=== PATIENT | female | born 1955 | race Caucasian/White ===

== ENCOUNTER 2017-04-02 18:27 | Emergency (ER) | payer MEDICARE, BC ==
[2017-04-02] MEDS: hydrALAzine 20 MG INJ IV (19:14)
== END 2017-04-02 21:00 | disposition home or self-care (01) ==
LOC: E/R 21:00
DX: I12.0 Hypertensive chronic kidney disease with stage 5 chronic kidney disease or end stage renal disease (principal); N18.6 End stage renal disease; E11.22 Type 2 diabetes mellitus with diabetic chronic kidney disease; I25.10 Atherosclerotic heart disease of native coronary artery without angina pectoris; Z79.4 Long term (current) use of insulin; Z79.01 Long term (current) use of anticoagulants; Z99.2 Dependence on renal dialysis; Z95.1 Presence of aortocoronary bypass graft; Z79.82 Long term (current) use of aspirin
CPT/HCPCS: 93005; 96374; 99284-25

== ENCOUNTER 2017-05-12 17:45 | Emergency (ER) | payer MEDICARE, BC ==
[2017-05-12] MEDS ORDERED: FAMOTIDINE 20 MG INJ IV (17:56)
[2017-05-12] MEDS ORDERED: hydrALAzine 20 MG INJ IV (18:00)
[2017-05-12] MEDS: LIDOCAINE/MYLANTA 40 ML BTL PO (18:50)
[2017-05-12] MEDS: NICARDipine HCL 30 MG CAPSULE PO (19:22)
[2017-05-12 21:46] LABS: ADD MAN DIFF? NO
[2017-05-12 21:47] LABS: WHITE BLOOD COUNT 2.9 10^3/ul (4.8-10.8)
[2017-05-12 21:48] LABS: BASOPHILS % 0.7 % (0.0-2.0); EOSINOPHILS # 0.1 10^3/ul (0.0-0.5); EOSINOPHILS % 3.8 % (0.0-7.0); HEMOGLOBIN 10.9 g/dl (12.0-16.0); LYMPHOCYTES # 0.8 10^3/ul (0.8-2.9); LYMPHOCYTES % 27.1 % (15.0-51.0); MEAN CORPUSCULAR HEMOGLOBIN 33.7 pg (29.0-33.0); MEAN CORPUSCULAR VOLUME 102.2 fl (82.0-101.0); MEAN PLATELET VOLUME 9.2 fl (7.4-10.4); MONOCYTE # 0.3 10^3/ul (0.3-0.9); MONOCYTES % 10.1 % (0.0-11.0); NEUTROPHIL # 1.7 10^3/ul (1.6-7.5); PLATELET COUNT 183 10^3/UL (140-415); RED BLOOD COUNT 3.23 10^6/ul (4.20-5.40); RED CELL DISTRIBUTION WIDTH 15.4 % (11.5-14.5)
[2017-05-12 22:03] LABS: INR 1.16; PT RATIO 1.2
[2017-05-12 22:05] LABS: ANION GAP 19 (8-16); BLOOD UREA NITROGEN 39 mg/dl (7-20); CALCIUM 9.3 mg/dl (8.4-10.2); CARBON DIOXIDE 28 mmol/L (21-31); CHLORIDE 97 mmol/L (97-110); CREATININE 3.57 mg/dl (0.44-1.00); GLUCOSE 75 mg/dl (70-220); POTASSIUM 5.2 mmol/L (3.5-5.1); SODIUM 139 mmol/L (135-144)
[2017-05-12 22:10] LABS: PARTIAL THROMBOPLASTIN TIME 97.6 Sec (25.0-35.0)
[2017-05-12 22:17] LABS: TROPONIN-I 0.025 ng/ml (0.00-0.12)
== END 2017-05-13 02:20 | disposition home or self-care (01) ==
LOC: E/R 05-13 02:20
DX: I16.0 Hypertensive urgency (principal); E11.22 Type 2 diabetes mellitus with diabetic chronic kidney disease; N18.6 End stage renal disease; I12.0 Hypertensive chronic kidney disease with stage 5 chronic kidney disease or end stage renal disease; Z79.82 Long term (current) use of aspirin; Z79.84 Long term (current) use of oral hypoglycemic drugs; Z99.2 Dependence on renal dialysis
CPT/HCPCS: 36415; 70450; 71045; 80048; 84484; 85025; 85610; 85730; 93005; 99285-25

== ENCOUNTER 2017-09-27 10:50 | Emergency (ER) | payer MEDICARE, BC ==
[2017-09-27] MEDS: IBUPROFEN 600 MG TAB PO (11:25)
[2017-09-27 11:46] LABS: ADD UMIC YES; UR ASCORBIC ACID NEGATIVE (NEGATIVE); UR BACTERIA FEW /HPF (NONE SEEN); UR BILIRUBIN (Dip) NEGATIVE (NEGATIVE); UR BLOOD (Dip) NEGATIVE (NEGATIVE); UR CLARITY SLIGHTLY CLOUDY (CLEAR); UR COLOR YELLOW (YELLOW); UR GLUCOSE (Dip) 1+ mg/dL (NEGATIVE); UR KETONES (Dip) NEGATIVE (NEGATIVE); UR LEUKOCYTE ESTERASE (Dip) 3+ Leu/ul (NEGATIVE); UR NITRITE (Dip) NEGATIVE (NEGATIVE); UR RBC 4 /HPF (0-5); UR RENAL EPITHELIAL CELL FEW /HPF (NONE SEEN); UR SPECIFIC GRAVITY (Dip) 1.008 (1.003-1.030); UR SQUAMOUS EPITHELIAL CELL MODERATE /HPF (FEW); UR TOTAL PROTEIN (Dip) 2+ mg/dl (NEGATIVE); UR UROBILINOGEN (Dip) NEGATIVE (NEGATIVE); UR WBC 17 /HPF (0-5)
== END 2017-09-27 12:18 | disposition home or self-care (01) ==
LOC: FTE 10:50
DX: S39.012A Strain of muscle, fascia and tendon of lower back, initial encounter (principal); N30.00 Acute cystitis without hematuria; I12.0 Hypertensive chronic kidney disease with stage 5 chronic kidney disease or end stage renal disease; N18.6 End stage renal disease; E11.22 Type 2 diabetes mellitus with diabetic chronic kidney disease; W19.XXXA Unspecified fall, initial encounter; Y92.9 Unspecified place or not applicable; Z99.2 Dependence on renal dialysis; Z79.4 Long term (current) use of insulin; Z79.82 Long term (current) use of aspirin; Z79.01 Long term (current) use of anticoagulants
CPT/HCPCS: 72100; 81001; 99284-25

== ENCOUNTER 2017-11-17 16:33 | Observation (INO) | payer MEDICARE, BC ==
[2017-11-17 17:00] LABS: ADD MAN DIFF? NO
[2017-11-17 17:03] LABS: BASOPHILS % 0.6 % (0.0-2.0); EOSINOPHILS # 0.1 10^3/ul (0.0-0.5); EOSINOPHILS % 3.5 % (0.0-7.0); HEMATOCRIT 30.3 % (37.0-47.0); HEMOGLOBIN 9.8 g/dl (12.0-16.0); LYMPHOCYTES % 30.8 % (15.0-51.0); MEAN CORPUSCULAR HEMOGLOBIN 35.5 pg (29.0-33.0); MEAN CORPUSCULAR HGB CONC 32.3 g/dl (32.0-37.0); MEAN CORPUSCULAR VOLUME 109.8 fl (82.0-101.0); MEAN PLATELET VOLUME 9.6 fl (7.4-10.4); MONOCYTE # 0.3 10^3/ul (0.3-0.9); MONOCYTES % 9.1 % (0.0-11.0); NEUTROPHIL # 1.8 10^3/ul (1.6-7.5); NUCLEATED RED BLOOD CELLS% 0.9 /100WBC (0.0-0.0); PLATELET COUNT 152 10^3/UL (140-415); RED BLOOD COUNT 2.76 10^6/ul (4.20-5.40); RED CELL DISTRIBUTION WIDTH 15.4 % (11.5-14.5)
[2017-11-17 17:03] LABS: WHITE BLOOD COUNT 3.2 10^3/ul (4.8-10.8)
[2017-11-17] MEDS: NITROGLYCERIN 2% 1 GM OINT PKT TD (17:17)
[2017-11-17] MEDS: ASPIRIN 81 MG TAB PO (17:17)
[2017-11-17 17:28] LABS: ALANINE AMINOTRANSFERASE 37 IU/L (13-69); ALBUMIN 4.1 g/dl (3.3-4.9); ALBUMIN/GLOBULIN RATIO 1.13; ALKALINE PHOSPHATASE 120 IU/L (42-121); ANION GAP 16 (8-16); ASPARTATE AMINO TRANSFERASE 35 IU/L (15-46); BILIRUBIN,INDIRECT 0.7 mg/dl (0-1.1); BILIRUBIN,TOTAL 0.7 mg/dl (0.2-1.3); BLOOD UREA NITROGEN 23 mg/dl (7-20); CALCIUM 9.5 mg/dl (8.4-10.2); CARBON DIOXIDE 28 mmol/L (21-31); CHLORIDE 97 mmol/L (97-110); CREATININE 3.24 mg/dl (0.44-1.00); GLUCOSE 111 mg/dl (70-220); POTASSIUM 4.3 mmol/L (3.5-5.1); SODIUM 137 mmol/L (135-144); TOTAL PROTEIN 7.7 g/dl (6.1-8.1)
[2017-11-17 17:39] LABS: TROPONIN-I 0.043 ng/ml (0.000-0.120)
[2017-11-17] MEDS ORDERED: traMADol 50 MG TAB PO (19:00)
[2017-11-17] MEDS ORDERED: PHENAZOPYRIDINE 100 MG TAB PO (19:00)
[2017-11-17] MEDS ORDERED: NACL 0.9% 3 ML SYG IV (19:00)
[2017-11-17] MEDS ORDERED: NON-FORMULARY/PATIENT OWN MED (Clonidine Patch 1 PATCH.WK) TD (19:00)
[2017-11-17] MEDS ORDERED: HYDROCODONE/APAP (5/325) TAB PO (19:00)
[2017-11-17] MEDS ORDERED: ACETAMINOPHEN 325 MG TAB PO (19:00)
[2017-11-17] MEDS ORDERED: DOCUSATE SODIUM 100 MG CAP PO (19:00)
[2017-11-17] MEDS ORDERED: MAGNESIUM HYDROXIDE 30ML CUP PO (19:00)
[2017-11-17] MEDS ORDERED: NITROGLYCERIN (SL) 0.4 MG TAB SL (19:00)
[2017-11-17] MEDS ORDERED: ZOLPIDEM 5 MG TAB PO ×2 (19:00)
[2017-11-17] MEDS ORDERED: NUT TX IMPAIRED RENAL FXN SOY PO (19:00)
[2017-11-17] MEDS ORDERED: [UNRECOGNIZED DRUG - OTHER] PO (19:00)
[2017-11-17] MEDS ORDERED: morphine 2 MG INJ IV (19:00)
[2017-11-17] MEDS ORDERED: GLUCOSE GEL 15 GRAM TUBE BUCCAL (19:30)
[2017-11-17] MEDS ORDERED: GLUCOSE GEL 15 GRAM TUBE PO ×2 (19:30)
[2017-11-17] MEDS ORDERED: DEXTROSE 50% 50 ML SYRINGE IV ×2 (19:30)
[2017-11-17] MEDS ORDERED: ONDANSETRON 4 MG INJ IV (19:30)
[2017-11-17] MEDS ORDERED: GLUCAGON 1 MG INJ IM (19:30)
[2017-11-17] MEDS: INSULIN ASPART [NOVOLOG] 3 ML PEN SC (21:00)
[2017-11-17] MEDS: NIFEdipine (XL) 30 MG TAB PO (21:58)
[2017-11-17] MEDS: SOD CHLORIDE 0.9% 1,000 ML IV (22:01)
[2017-11-17] MEDS: BIMATOPROST 0.01% 2.5 ML BTL BOTH EYES (22:13)
[2017-11-18 01:12] LABS: TROPONIN-I 0.041 ng/ml (0.000-0.120)
[2017-11-18] MEDS: ACCU-CHEK XX (02:00)
[2017-11-18] MEDS: PANTOPRAZOLE (EC) 40 MG TAB PO (06:24)
[2017-11-18] MEDS: INSULIN ASPART [NOVOLOG] 3 ML PEN SC ×4 (07:18→20:59)
[2017-11-18] MEDS: SEVELAMER CARBONATE 2.4 GM PKT PO ×3 (07:37→17:11)
[2017-11-18] MEDS: INSULIN ASP PROT/ASPART (70/30) PEN SC (07:43)
[2017-11-18] MEDS: traZODone 100 MG TAB PO (08:54)
[2017-11-18] MEDS: CINACALCET 30 MG TAB PO (08:54)
[2017-11-18] MEDS: CLOPIDOGREL 75 MG TAB PO (08:55)
[2017-11-18] MEDS: SERTRALINE 50 MG TAB PO (08:56)
[2017-11-18] MEDS: ASPIRIN 325 MG TAB PO (08:56)
[2017-11-18] MEDS: DOCUSATE SODIUM 100 MG CAP PO (08:56)
[2017-11-18 08:57] LABS: ADD MAN DIFF? NO
[2017-11-18] MEDS: MULTIVIT/CA CARB/B CMPLX/FA TAB PO (08:57)
[2017-11-18 09:03] LABS: WHITE BLOOD COUNT 2.4 10^3/ul (4.8-10.8)
[2017-11-18 09:03] LABS: BASOPHILS % 0.9 % (0.0-2.0); EOSINOPHILS # 0.1 10^3/ul (0.0-0.5); EOSINOPHILS % 4.3 % (0.0-7.0); HEMATOCRIT 27.6 % (37.0-47.0); LYMPHOCYTES # 0.7 10^3/ul (0.8-2.9); LYMPHOCYTES % 30.6 % (15.0-51.0); MEAN CORPUSCULAR HEMOGLOBIN 36.1 pg (29.0-33.0); MEAN CORPUSCULAR HGB CONC 32.6 g/dl (32.0-37.0); MEAN CORPUSCULAR VOLUME 110.8 fl (82.0-101.0); MEAN PLATELET VOLUME 9.6 fl (7.4-10.4); MONOCYTE # 0.3 10^3/ul (0.3-0.9); MONOCYTES % 11.9 % (0.0-11.0); NEUTROPHIL # 1.2 10^3/ul (1.6-7.5); NEUTROPHILS % 52.3 % (39.0-77.0); PLATELET COUNT 137 10^3/UL (140-415); RED BLOOD COUNT 2.49 10^6/ul (4.20-5.40); RED CELL DISTRIBUTION WIDTH 15.2 % (11.5-14.5)
[2017-11-18 09:26] LABS: ANION GAP 16 (8-16); BLOOD UREA NITROGEN 40 mg/dl (7-20); CALCIUM 9.2 mg/dl (8.4-10.2); CARBON DIOXIDE 26 mmol/L (21-31); CHLORIDE 99 mmol/L (97-110); CREATININE 4.43 mg/dl (0.44-1.00); GLUCOSE 83 mg/dl (70-220); MAGNESIUM 1.9 mg/dl (1.7-2.5); PHOSPHORUS 5.6 mg/dl (2.5-4.9); SODIUM 136 mmol/L (135-144)
[2017-11-18 09:31] LABS: TROPONIN-I 0.041 ng/ml (0.000-0.120)
[2017-11-18 10:23] LABS: ADD UMIC YES; UR ASCORBIC ACID NEGATIVE (NEGATIVE); UR BACTERIA FEW /HPF (NONE SEEN); UR BILIRUBIN (Dip) NEGATIVE (NEGATIVE); UR BLOOD (Dip) 1+ mg/dL (NEGATIVE); UR CLARITY CLEAR (CLEAR); UR COLOR YELLOW (YELLOW); UR GLUCOSE (Dip) 1+ mg/dL (NEGATIVE); UR KETONES (Dip) NEGATIVE (NEGATIVE); UR LEUKOCYTE ESTERASE (Dip) 1+ Leu/ul (NEGATIVE); UR NITRITE (Dip) NEGATIVE (NEGATIVE); UR RBC 3 /HPF (0-5); UR SPECIFIC GRAVITY (Dip) 1.008 (1.003-1.030); UR SQUAMOUS EPITHELIAL CELL FEW /HPF (FEW); UR TOTAL PROTEIN (Dip) 2+ mg/dl (NEGATIVE); UR UROBILINOGEN (Dip) NEGATIVE (NEGATIVE); UR WBC 23 /HPF (0-5)
[2017-11-18 10:29] LABS: HEMOGLOBIN A1C 5.4 % (0-5.9)
[2017-11-18 10:31] LABS: CHOL/HDL RATIO 3.9 RATIO; HDL CHOLESTEROL 67 mg/dl (35-98); LDL CHOLESTEROL,CALCULATED 172 mg/dl; TRIGLYCERIDES 124 mg/dl (0-149)
[2017-11-18 10:31] LABS: CHOLESTEROL 264 mg/dl (100-200)
[2017-11-18] MEDS: LEVOFLOXACIN 500MG/D5W (PMX) 100 ML IVPB (10:51)
[2017-11-18] MEDS: NIFEdipine (XL) 30 MG TAB PO ×2 (12:01→20:54)
[2017-11-18] MEDS: ISOSORBIDE MONONITRATE(SR)60 MG TAB PO (12:01)
[2017-11-18] MEDS: ONDANSETRON 4 MG INJ IV (12:08)
[2017-11-18 17:39] LABS: HEPATITIS B SURFACE ANTIGEN NEGATIVE (NEGATIVE)
[2017-11-18] MEDS: ATORVASTATIN 80 MG TAB PO (20:53)
[2017-11-18] MEDS: OLOPATADINE 0.1% 5 ML OPH BOTH EYES ×2 (20:53)
[2017-11-18] MEDS ORDERED: ATORVASTATIN 20 MG TAB PO (21:00)
[2017-11-19] MEDS ORDERED: LATANOPROST 0.005% 2.5 ML OPH BOTH EYES (01:00)
[2017-11-19] MEDS: ACCU-CHEK XX (02:00)
[2017-11-19] MEDS: PANTOPRAZOLE (EC) 40 MG TAB PO (06:35)
[2017-11-19] MEDS: INSULIN ASPART [NOVOLOG] 3 ML PEN SC ×2 (08:00→12:00)
[2017-11-19] MEDS: INSULIN ASP PROT/ASPART (70/30) PEN SC (08:00)
[2017-11-19] MEDS: ONDANSETRON 4 MG INJ IV (08:02)
[2017-11-19] MEDS: SEVELAMER CARBONATE 2.4 GM PKT PO ×2 (08:02→14:32)
[2017-11-19] MEDS ORDERED: hydrALAzine 20 MG INJ IV (11:00)
[2017-11-19] MEDS: HEPARIN 1000 UNITS/ML 10 ML INJ CATHETER (13:05)
[2017-11-19] MEDS: SERTRALINE 50 MG TAB PO (14:32)
[2017-11-19] MEDS: MULTIVIT/CA CARB/B CMPLX/FA TAB PO (14:32)
[2017-11-19] MEDS: CLOPIDOGREL 75 MG TAB PO (14:32)
[2017-11-19] MEDS: ASPIRIN 81 MG TAB PO (14:32)
[2017-11-19] MEDS: ERGOCALCIFEROL 50,000 UNIT CAP PO (14:33)
[2017-11-19] MEDS: CINACALCET 30 MG TAB PO (14:33)
[2017-11-19] MEDS: ISOSORBIDE MONONITRATE(SR)60 MG TAB PO (14:34)
[2017-11-19] MEDS: DOCUSATE SODIUM 100 MG CAP PO (14:34)
[2017-11-19] MEDS: traZODone 100 MG TAB PO (14:34)
[2017-11-19] MEDS: NIFEdipine (XL) 30 MG TAB PO (14:34)
[2017-11-20] MEDS ORDERED: LEVOFLOXACIN 250MG/D5W (PMX) 50 ML IVPB (11:00)
== END 2017-11-19 18:09 | disposition home or self-care (01) ==
LOC: E/R 16:33 → 6WM 19:13
DX: I13.2 Hypertensive heart and chronic kidney disease with heart failure and with stage 5 chronic kidney disease, or end stage renal disease (principal); I50.33 Acute on chronic diastolic (congestive) heart failure; N18.6 End stage renal disease; Z99.2 Dependence on renal dialysis; E78.5 Hyperlipidemia, unspecified; I25.10 Atherosclerotic heart disease of native coronary artery without angina pectoris; E11.9 Type 2 diabetes mellitus without complications; Z79.4 Long term (current) use of insulin; Z79.82 Long term (current) use of aspirin
CPT/HCPCS: 36415; 71045; 80048; 80053; 80061; 81001; 82962; 83036; 83735; 84100; 84484; 85025; 87081; 87086; 87340; 90935; 93005; 93306; 99285-25; G0378